=== PATIENT | female | born 1995 | race Caucasian/White ===

== ENCOUNTER 2016-11-23 22:16 | Emergency (ER) | payer BC, MEDICAID ==
[~2016-11-23] VITALS: Ht 165.1 cm; Wt 52.3 kg
[~2016-11-23 22:16] MED LIST: AMOXICILLIN 8751 TAB PO; CEFTIN500 MG PO; FERROUS SU325 MG/TAB PO; FLAGYL 250250 MG/TAB PO; FLINTSTONES COM1 CT1 PO; FLINTSTONES1 CTB PO; IRON325 MG PO; MACROBID 1100 MG/CAP; MOTRIN 600600 MG/TAB PO; NORCO 325 MG-51 TAB PO; PERCOCET 325 MG1 TA2 PO; PHENERGAN 25 TA25 MG PO; PRENATAL1 TA7 PO; ZOFRAN 4MG T4 MG/TAB PO
[2016-11-23 22:18] VITALS: BP 107/69; TEMP 97.6
[2016-11-23 22:56] LABS: BASO % 0.2 % (0.0-2.0); EOS % 0.5 % (0-4.0); GRAN % 61.7 % (42.2-75.2); HEMOGLOBIN 12.3 g/dl (12.5-16.0); LYMPH # 2.5 (1.2-3.4); LYMPH % 31.2 % (20.0-51.0); MEAN CELL VOLUME 86 fl (80.0-100.0); MEAN CORPUSCULAR HEMOGLOBIN 29 pg (27.0-31.0); MEAN CORPUSCULAR HGB CONC 34 g/dl (33.0-37.0); MEAN PLATELET VOLUME 10.5 fl (7.4-10.4); MONO # 0.5 (0.1-0.6); MONO % 6.2 % (1.7-9.3); PLATELET COUNT 172 K/mm3 (130-400); REDCELL DISTRIBUTION WIDTH-CV 13.3 % (11.5-14.5); WHITE BLOOD COUNT 8.1 K/mm3 (4.8-10.8)
[2016-11-23 22:57] LABS: HEMATOCRIT 36.2 % (37.0-47.0)
[2016-11-23 23:04] LABS: ADJUSTED CALCIUM 9.1 mg/dL (8.4-10.2); ALBUMIN 4.1 gm/dL (3.5-5.0); BILIRUBIN,TOTAL 0.7 mg/dL (0.0-1.0); CALCIUM 9.2 mg/dL (8.4-10.2); CREATININE, serum 0.64 mg/dL (0.52-1.25); POTASSIUM 3.3 mmol/L (3.4-5.0)
[2016-11-23 23:32] LABS: PH 5 (5-8); SQUAMOUS EPITHELIAL 0-2 /hpf; URINE APPEARANCE Hazy; URINE BACTERIA None Seen /hpf; URINE BILIRUBIN Negative (NEGATIVE); URINE BLOOD 1+ (NEGATIVE); URINE COLOR Yellow; URINE GLUCOSE Negative (NEGATIVE); URINE KETONE Negative (NEGATIVE); URINE UROBILINOGEN Negative (NEGATIVE)
[2016-11-23 23:33] LABS: URINE WBC 0-2 /hpf
[2016-11-24 00:43] VITALS: PULSE 82
== END 2016-11-24 00:45 | disposition home or self-care (01) ==
LOC: COL.ER 22:16
PROVIDERS: Emergency Medicine
DX: R10.31 Right lower quadrant pain (principal)
CPT/HCPCS: J1170; J1885; J2550; J7030

== ENCOUNTER 2017-02-01 13:31 | Emergency (ER) | payer BC, MEDICAID ==
[~2017-02-01] VITALS: Ht 165.1 cm; Wt 50.0 kg
[2017-02-01 13:35] VITALS: TEMP 100.2
[2017-02-01 14:23] LABS: PH 7 (5-8); SQUAMOUS EPITHELIAL None Seen /hpf; URINE APPEARANCE Cloudy; URINE BACTERIA Many /hpf; URINE BILIRUBIN Negative (NEGATIVE); URINE BLOOD 2+ (NEGATIVE); URINE COLOR Yellow; URINE GLUCOSE Negative (NEGATIVE); URINE KETONE Trace (NEGATIVE); URINE RBC 20-50 /hpf; URINE UROBILINOGEN Negative (NEGATIVE); URINE WBC >50 /hpf
[2017-02-01 14:28] LABS: BASO % 0.2 % (0.0-2.0); EOS % 0.1 % (0-4.0); GRAN % 83.3 % (42.2-75.2); HEMATOCRIT 40.4 % (37.0-47.0); HEMOGLOBIN 13.1 g/dl (12.5-16.0); LYMPH # 1.3 (1.2-3.4); LYMPH % 8.4 % (20.0-51.0); MEAN CELL VOLUME 89 fl (80.0-100.0); MEAN CORPUSCULAR HEMOGLOBIN 29 pg (27.0-31.0); MEAN CORPUSCULAR HGB CONC 32 g/dl (33.0-37.0); MEAN PLATELET VOLUME 10.3 fl (7.4-10.4); MONO # 1.2 (0.1-0.6); MONO % 7.6 % (1.7-9.3); PLATELET COUNT 209 K/mm3 (130-400); RED BLOOD COUNT 4.55 M/mm3 (4.10-5.30); WHITE BLOOD COUNT 15.6 K/mm3 (4.8-10.8)
[2017-02-01] MEDS ORDERED: NORCO 325 MG-51 TAB PO (14:38)
[2017-02-01] MEDS ORDERED: ZOFRAN ODT4 MG PO (14:38)
[2017-02-01] MEDS ORDERED: OMNICEF 300MG300 MG PO (14:38)
[2017-02-01 14:44] LABS: ADJUSTED CALCIUM 9.3 mg/dL (8.4-10.2); ALBUMIN 4.2 gm/dL (3.5-5.0); BILIRUBIN,TOTAL 1.1 mg/dL (0.0-1.0); C-REACTIVE PROTEIN 5.3 mg/dL (0.0-0.9); CALCIUM 9.5 mg/dL (8.4-10.2); CREATININE, serum 0.68 mg/dL (0.52-1.25); POTASSIUM 3.9 mmol/L (3.4-5.0); TOTAL PROTEIN 7.6 gm/dL (6.4-8.2)
[2017-02-01 16:04] VITALS: BP 107/47; PULSE 102
== END 2017-02-01 16:00 | disposition home or self-care (01) ==
LOC: COL.ER 13:31
PROVIDERS: Emergency Medicine
DX: N12 Tubulo-interstitial nephritis, not specified as acute or chronic (principal); B96.20 Unspecified Escherichia coli [E. coli] as the cause of diseases classified elsewhere
CPT/HCPCS: J0696; J7030; Q9967

== ENCOUNTER 2021-09-16 18:55 | Inpatient (IN) | payer MEDICAID ==
[2021-09-16] VITALS (15 sets, daily range): BP systolic 86–125; BP diastolic 40–82; PULSE 76–103; TEMP 97.7
[~2021-09-16] VITALS: Ht 162.6 cm; Wt 69.5 kg
[~2021-09-16 18:55] MED LIST changes: +OMNICEF 300MG300 MG PO; +ZOFRAN ODT4 MG PO
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
[2021-09-16 21:23] LABS: MEAN CELL VOLUME 90 fl (80.0-100.0); MEAN CORPUSCULAR HGB CONC 34 g/dl (33.0-37.0); MEAN PLATELET VOLUME 10.5 fl (7.4-10.4); PLATELET COUNT 156 K/mm3 (130-400); RED BLOOD COUNT 2.72 M/mm3 (4.10-5.30); REDCELL DISTRIBUTION WIDTH-CV 13.2 % (11.5-14.5)
[2021-09-16 21:33] LABS: ALBUMIN 2.5 gm/dL (3.5-5.0); BILIRUBIN,TOTAL 0.6 mg/dL (0.2-1.2); CALCIUM 7.7 mg/dL (8.4-10.2); CREATININE, serum 0.6 mg/dL (0.57-1.11); POTASSIUM 3.6 mmol/L (3.5-4.5); TOTAL PROTEIN 4.6 gm/dL (6.2-8.1)
[2021-09-16 21:37] LABS: HEMATOCRIT 24.5 % (37.0-47.0); HEMOGLOBIN 8.4 g/dl (12.5-16.0); MEAN CORPUSCULAR HEMOGLOBIN 31 pg (27.0-31.0)
[2021-09-16 21:56] LABS: TRICYCLIC ANTIDEPRESS URINE NEGATIVE
[2021-09-16 21:57] LABS: INR 1.3 (0.8-3.0); PROTHROMBIN TIME 14.4 SECONDS (9.7-12.8)
[2021-09-16 22:08] LABS: FIBRINOGEN < 100 mg/dL (200-450)
[2021-09-16 22:24] LABS: BAND 10 % (0-10); LYMPHOCYTE 12 % (20.0-51.0); NEUTROPHILS 74 % (42.0-75.2); PLATELET ESTIMATE NORMAL (NORMAL)
[2021-09-17] VITALS (39 sets, daily range): BP systolic 80–106; BP diastolic 27–72; PULSE 60–101; TEMP 97.4–98.8
--- NOTE | 2021-09-17 07:46 | NUR ---
This data analyst report writer has just spoken with [facility] pertaining to patient delivery, satus. Call back number . Case #[id number].
[2021-09-17 07:50] LABS: BASO % 0.2 % (0.0-2.0); EOS % 0.3 % (0-4.0); GRAN # 8.6 K/mm3 (1.4-6.5); GRAN % 72.3 % (42.2-75.2); LYMPH # 2.1 K/mm3 (1.2-3.4); LYMPH % 17.8 % (20.0-51.0); MEAN CELL VOLUME 89 fl (80.0-100.0); MEAN CORPUSCULAR HGB CONC 33 g/dl (33.0-37.0); MEAN PLATELET VOLUME 10.7 fl (7.4-10.4); MONO # 1.1 K/mm3 (0.1-0.6); MONO % 8.8 % (1.7-9.3); PLATELET COUNT 131 K/mm3 (130-400); RED BLOOD COUNT 2.03 M/mm3 (4.10-5.30); REDCELL DISTRIBUTION WIDTH-CV 13.2 % (11.5-14.5)
[2021-09-17 07:52] LABS: MEAN CORPUSCULAR HEMOGLOBIN 30 pg (27.0-31.0)
--- NOTE | 2021-09-17 08:26 | NUR ---
Lab notified of new order for 1U PRBC. States they will begin working on it.
--- NOTE | 2021-09-17 09:16 | NUR ---
Patient requesting patino catheter removal. Note, patient Hgb unstable. Will check orthostatic BPs: Supine-BP 94/46 P 73 Sitting upright- BP 95/66 P 119 Standing - BP 96/49 P 111
--- NOTE | 2021-09-17 09:30 | NUR ---
Patient ambulates in room with standby assist. Note patient verbalizes she is slightly lightheaded. Denies any dizziness or nausea. Sits on couch for approximately 20 minutes while this real estate underwriter changes linens. New gown provided, mesh underwear, abdulkadir pad. Matthews care provided. Encouraged increased po fluid intake. Verbalizes understanding.
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
--- NOTE | 2021-09-17 12:00 | NUR ---
Note, patient has received update on @ [facility]. Informed remains stable, has a UVC in place. On forced room air per nasal canula, but overall, doing well.
--- NOTE | 2021-09-17 12:15 | NUR ---
Note patient mother here.
--- NOTE | 2021-09-17 13:00 | NUR ---
Reports beginning to feel urge to have a BM. This typewriter tester assists patient up to ambulate in hallways. Note slow, steady gait. Patient denies any lightheadedness/dizziness/nausea. Color remains WNL. Upon return to room, Sierra Dugan RN, market research consultant in to set patient up with breast pump/parts.
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
--- NOTE | 2021-09-17 14:00 | NUR ---
Social work in for consult.
[2021-09-17 14:32] LABS: HEMATOCRIT 20.1 % (37.0-47.0); HEMOGLOBIN 6.9 g/dl (12.5-16.0)
--- NOTE | 2021-09-17 15:04 | NUR ---
Note scanner not recognizing patient bracelet even with triple verification including patient name, , and V#.
--- NOTE | 2021-09-17 15:05 | NUR ---
This appeals writer discusses order has been received to DC patino catheter, allow patient to shower, and remove dressing. Patient requests to take a nap first. Note, patient has had no uninterrupted rest up to this point today. Will allow. Family resting sign placed on patient door.
--- NOTE | 2021-09-17 17:00 | NUR ---
Matthews catheter removed at this time. Patient trembling in pain upon sitting up to edge of bed. Ambulates to bathroom, able to spontaneously void @ this time. Zahra care provided. Patient requests pain meds prior to attempting shower.
--- NOTE | 2021-09-17 17:40 | NUR ---
Blood bank notified of new order for 2 additional units of PRBC.
--- NOTE | 2021-09-17 17:42 | NUR ---
Discussed with patient and patient mother plan of care to include transfusing 2 additional units PRBC. Discussed change in color to pale upon ambulation this last time, in combination with patient feeling extremely fatigued upon minimal exertion. Verbalizes understanding. Agreeable to plan of care.
--- NOTE | 2021-09-17 18:15 | NUR ---
Patient up to bathroom independently while this marketing copywriter in room. No assist required.
--- NOTE | 2021-09-17 19:27 | NUR ---
First unit of PRBC started at this time. This RN to remain in room for first 15 mins. Vital signs stable.
--- NOTE | 2021-09-17 22:00 | NUR ---
Second unit of PRBC started at this time. Pt sleeping. This RN will remain in room for first 15 mins of transfusion. Vital signs stable
[2021-09-18 00:15] VITALS: BP 95/59; PULSE 80; TEMP 98
[2021-09-18 07:35] VITALS: BP 103/53; PULSE 74; TEMP 97.8
[2021-09-18 07:52] LABS: HEMATOCRIT 29.4 % (37.0-47.0); HEMOGLOBIN 10.1 g/dl (12.5-16.0)
[2021-09-18] MEDS ORDERED: FERROUS SU325 MG/TAB PO (08:22)
[2021-09-18] MEDS ORDERED: MOTRIN 600600 MG/TAB PO (08:22)
[2021-09-18] MEDS ORDERED: PERCOCET 325 MG1 TA2 PO (08:23)
[2021-09-18 16:19] VITALS: BP 119/61; PULSE 88; TEMP 98.2
[2021-09-18 19:20] VITALS: BP 115/62; PULSE 83; TEMP 98.4
[2021-09-19 06:59] VITALS: BP 111/66; PULSE 83; TEMP 98.6
--- NOTE | 2021-09-19 09:28 | NUR ---
RX: [id number] Home norco pack given to patient.
== END 2021-09-19 12:30 | disposition home or self-care (01) | DRG 787 ==
LOC: LDR 18:55 → OB 18:55 → LDR 21:19 → OB 21:30
PROVIDERS: Obstetrics & Gynecology
PROC: 10D00Z1 Extraction of Products of Conception, Low, Open Approach (ICD-10-PCS; principal; 2021-09-16)
DX: O45.0 Premature separation of placenta with coagulation defect (principal); O98.32 Other infections with a predominantly sexual mode of transmission complicating childbirth; D62 Acute posthemorrhagic anemia; O90.81 Anemia of the puerperium; A60.09 Herpesviral infection of other urogenital tract; R87.613 High grade squamous intraepithelial lesion on cytologic smear of cervix (HGSIL); O99.334 Smoking (tobacco) complicating childbirth; F17.210 Nicotine dependence, cigarettes, uncomplicated; Z3A.32 32 weeks gestation of pregnancy; Z37.0 Single live birth
CPT/HCPCS: J0171; J0330; J0690; J2210; J2270; J2370; J2405; J2590; J2704; J3010; J7120; P9016